=== PATIENT | male | born 1995 | race Caucasian/White ===

== ENCOUNTER 2017-06-29 12:01 | Emergency (ER) | payer SELFPAY ==
[~2017-06-29] VITALS: Ht 188 cm; Wt 79.0 kg
[~2017-06-29 12:01] MED LIST: BACTRIM DS1 TAB PO; CEPHALEXIN500 MG PO; CLARITIN-D1 TA1 OR; DOXYCYCL HYC100 MG PO; LAMICTAL25 M1 PO; LITHIUM CARB300 MG PO; LORTAB 10 PO; NAPROSYN500 MG PO; SEROQUEL100 MG PO; VYVANCE; VYVANSE40 MG PO
[2017-06-29 12:41] LABS: HEMATOCRIT 44.6 % (39.0-50.0); HEMOGLOBIN 15.1 g/dl (14.0-18.0); IMMATURE GRANULOCYTES 0.9 % (0.0-1.0); MEAN CELL VOLUME 83.4 fL CALC (80.0-100.0); MEAN CORPUSCULAR HGB 28.2 pG CALC (26.0-32.0); MEAN CORPUSCULAR HGB CONC 33.9 g/L CALC (32.0-36.0); NEUT# 4.27 thou/uL (1.82-7.42); RED BLOOD COUNT 5.35 mill/uL (4.70-6.10); RED CELL DISTRI WIDTH 12.8 % (11.5-15.5)
[2017-06-29 12:58] LABS: ALBUMIN 4.3 g/dL (3.2-5.0); ALKALINE PHOSPHATASE 64 u/l (38-126); ANION GAP 20 (6-22 (CALC)); BILIRUBIN, TOTAL 0.6 mg/dL (0.0-1.4); BUN 9 mg/dL (9-20); BUN/CREATININE RATIO 10 (12-20 (CALC)); CALCIUM 9.6 mg/dL (8.4-10.2); CARBON DIOXIDE 25 mmol/l (22-30); CHLORIDE 106 mmol/l (95-108); CREATININE 0.9 mg/dL (0.7-1.3); GFR > 60 ML/MIN (>=60 (CALC)); GFR FOR AFR.AMER. > 60 ML/MIN (>=60 (CALC)); GLUCOSE 96 mg/dL (75-110); LIPASE 81 u/l (23-300); POTASSIUM 4.3 mmol/l (3.5-5.1); SGOT/AST 22 u/l (17-59); SGPT/ALT 28 u/l (21-72); SODIUM 146 mmol/l (137-146); TOTAL PROTEIN 7.4 g/dL (6.3-8.2)
[2017-06-29 13:24] LABS: URINE BILIRUBIN - DIPSTICK NEGATIVE (NEGATIVE); URINE BLOOD DIPSTICK TRACE-LYSED (NEGATIVE); URINE CLARITY CLEAR; URINE COLOR YELLOW; URINE GLUCOSE - DIPSTICK NEGATIVE (NEGATIVE); URINE KETONE NEGATIVE (NEGATIVE); URINE LEUK ESTERASE NEGATIVE (NEGATIVE); URINE NITRITE - DIPSTICK NEGATIVE (Negative); URINE PROTEIN - DIPSTICK NEGATIVE (NEG-TRACE); URINE SPECIFIC GRAVITY >=1.030; URINE UROBILINOGEN - DIPSTICK 0.2 E.U./dL (0.2)
[2017-06-29] MEDS ORDERED: ONDANSETRON4 MG PO (14:33)
[2017-06-29 14:45] VITALS: BP 134/86
== END 2017-06-29 14:53 | disposition home or self-care (01) | DRG 392 ==
LOC: ED 12:01
PROVIDERS: Family Medicine
DX: K52.9 Noninfective gastroenteritis and colitis, unspecified (principal); R11.2 Nausea with vomiting, unspecified; R10.33 Periumbilical pain; R30.0 Dysuria
CPT/HCPCS: Q9967

== ENCOUNTER 2018-08-27 20:15 | Emergency (ER) | payer OTHER ==
[~2018-08-27] VITALS: Ht 188 cm; Wt 81.8 kg
[~2018-08-27 20:15] MED LIST changes: +ONDANSETRON4 MG PO
[2018-08-27 23:00] VITALS: BP 124/77
== END 2018-08-27 23:00 | disposition home or self-care (01) | DRG 605 ==
LOC: ED 20:15
DX: S00.33XA Contusion of nose, initial encounter (principal); S00.31XA Abrasion of nose, initial encounter; W22.8XXA Striking against or struck by other objects, initial encounter; Y93.K9 Activity, other involving animal care; Y92.71 Barn as the place of occurrence of the external cause; Y99.0 Civilian activity done for income or pay

== ENCOUNTER 2020-07-17 22:13 | Emergency (ER) | payer OTHER ==
[~2020-07-17] VITALS: Ht 188 cm; Wt 81.8 kg
[2020-07-17 22:15] VITALS: BP 138/62
[2020-07-17 22:50] LABS: IMMATURE GRANULOCYTES 0.8 % (0.0-5.0); MEAN CELL VOLUME 84.6 fL CALC (80.0-100.0); MEAN CORPUSCULAR HGB 27.6 pG CALC (26.0-32.0); MEAN CORPUSCULAR HGB CONC 32.6 g/dL CAL (32.0-36.0); NEUT# 7.88 thou/uL (1.82-7.42); RED BLOOD COUNT 5.08 mill/uL (4.70-6.10); RED CELL DISTRI WIDTH 12.5 % (11.5-15.5)
[2020-07-17 23:04] LABS: ALBUMIN 4.3 g/dL (3.2-5.0); ALKALINE PHOSPHATASE 61 u/l (38-126); AMYLASE 56 u/l (30-110); ANION GAP 10 (6-22 (CALC)); BILIRUBIN, TOTAL 0.8 mg/dL (0.0-1.4); BUN 18 mg/dL (9-20); BUN/CREATININE RATIO 15 (12-20 (CALC)); CARBON DIOXIDE 27 mmol/l (22-30); CHLORIDE 107 mmol/l (95-108); CREATININE 1.2 mg/dL (0.7-1.3); GFR > 60 ML/MIN (>=60 (CALC)); GFR FOR AFR.AMER. > 60 ML/MIN (>=60 (CALC)); LIPASE 71 u/l (23-300); POTASSIUM 3.8 mmol/l (3.5-5.1); SGOT/AST 36 u/l (17-59); SODIUM 141 mmol/l (137-146); TOTAL PROTEIN 6.9 g/dL (6.3-8.2)
[2020-07-18 00:29] LABS: URINE BILIRUBIN - DIPSTICK NEGATIVE (NEGATIVE); URINE BLOOD DIPSTICK NEGATIVE (NEGATIVE); URINE COLOR YELLOW; URINE GLUCOSE - DIPSTICK NEGATIVE (NEGATIVE); URINE KETONE TRACE mg/dL (NEGATIVE); URINE LEUK ESTERASE NEGATIVE (NEGATIVE); URINE NITRITE - DIPSTICK NEGATIVE (Negative); URINE PROTEIN - DIPSTICK NEGATIVE (NEG-TRACE); URINE SPECIFIC GRAVITY 1.025; URINE UROBILINOGEN - DIPSTICK 0.2 E.U./dL (0.2)
[2020-07-18] MEDS ORDERED: VOLTAREN75 MG PO (00:29)
[2020-07-18] MEDS ORDERED: TRAMADOL HYDROC50 MG PO (00:29)
== END 2020-07-18 01:04 | disposition home or self-care (01) | DRG 552 ==
LOC: ED 22:13
PROVIDERS: Family Medicine
DX: S32.039A Unspecified fracture of third lumbar vertebra, initial encounter for closed fracture (principal); S30.811A Abrasion of abdominal wall, initial encounter; J45.909 Unspecified asthma, uncomplicated; F31.9 Bipolar disorder, unspecified; V43.52XA Car driver injured in collision with other type car in traffic accident, initial encounter
CPT/HCPCS: Q9967

== ENCOUNTER 2023-03-15 23:40 | Emergency (ER) | payer SELFPAY ==
[~2023-03-15] VITALS: Ht 188 cm; Wt 86.0 kg
[~2023-03-15 23:40] MED LIST changes: +TRAMADOL HYDROC50 MG PO; +VOLTAREN75 MG PO
[2023-03-16] MEDS ORDERED: CYCLOBENZAPRINE10 MG PO (02:24)
[2023-03-16] MEDS ORDERED: ULTRAM50 MG PO (02:24)
[2023-03-16 02:37] VITALS: BP 120/74
== END 2023-03-16 02:59 | disposition home or self-care (01) | DRG 538 ==
LOC: ED 23:40
DX: S73.101A Unspecified sprain of right hip, initial encounter (principal); J45.909 Unspecified asthma, uncomplicated; F31.9 Bipolar disorder, unspecified; F17.200 Nicotine dependence, unspecified, uncomplicated; X58.XXXA Exposure to other specified factors, initial encounter

== ENCOUNTER 2023-11-01 17:37 | Emergency (ER) | payer SELFPAY ==
[~2023-11-01] VITALS: Ht 188 cm; Wt 77.0 kg
[~2023-11-01 17:37] MED LIST changes: +CYCLOBENZAPRINE10 MG PO; +LORTAB 5/3255 MG PO; +ULTRAM50 MG PO
[2023-11-01 18:57] LABS: URINE BILIRUBIN - DIPSTICK Negative (NEGATIVE); URINE BLOOD DIPSTICK Trace-lysed (NEGATIVE); URINE GLUCOSE - DIPSTICK Negative (NEGATIVE); URINE KETONE >=160 mg/dL (NEGATIVE); URINE LEUK ESTERASE Trace (NEGATIVE); URINE NITRITE - DIPSTICK Negative (Negative); URINE PH 5.5 (4.5-8.0); URINE PROTEIN - DIPSTICK Negative (NEG-TRACE); URINE SPECIFIC GRAVITY 1.025; URINE UROBILINOGEN - DIPSTICK 0.2 E.U./dL (0.2)
[2023-11-01 18:59] LABS: URINE COLOR Yellow
[2023-11-01] MEDS ORDERED: LIDOcaine HCl 1% (Local Anesth.) 20 ML VIAL IM STA (21:53)
[2023-11-01] MEDS ORDERED: cefTRIAXone SODIUM 1 GM/VIAL SDV IM ONE (21:55)
[2023-11-01] MEDS ORDERED: AZITHROMYCIN 250 MG/TAB PO ONE (21:55)
[2023-11-01] MEDS ORDERED: BACTRIM DS1 TAB PO (23:26)
[2023-11-01 23:38] VITALS: BP 122/88
== END 2023-11-01 23:47 | disposition home or self-care (01) | DRG 690 ==
LOC: ED 17:37
PROVIDERS: Emergency Medicine
DX: N39.0 Urinary tract infection, site not specified (principal); J45.909 Unspecified asthma, uncomplicated; F31.9 Bipolar disorder, unspecified; F17.200 Nicotine dependence, unspecified, uncomplicated

== ENCOUNTER 2024-03-12 17:48 | Emergency (ER) | payer SELFPAY ==
[~2024-03-12] VITALS: Ht 188 cm; Wt 78.0 kg
[2024-03-12] MEDS ORDERED: CEPHALEXIN500 M1 PO (18:16)
[2024-03-12] MEDS ORDERED: BACTRIM DS1 TAB PO (18:16)
[2024-03-12 18:28] VITALS: BP 111/74
== END 2024-03-12 18:33 | disposition home or self-care (01) | DRG 728 ==
LOC: ED 17:48
DX: N48.22 Cellulitis of corpus cavernosum and penis (principal); Z72.0 Tobacco use

== ENCOUNTER 2024-12-01 20:38 | Emergency (ER) | payer OTHER ==
[2024-12-01] VITALS (7 sets, daily range): BP systolic 111–127; BP diastolic 62–76
[~2024-12-01] VITALS: Ht 188 cm; Wt 90.0 kg
[~2024-12-01 20:38] MED LIST changes: +CEPHALEXIN500 M1 PO
[2024-12-01] MEDS ORDERED: oxyCODONE 5MG/ ACETAMINOPHEN 325MG TAB PO ONE (21:10)
[2024-12-01] MEDS ORDERED: PERCOCET 5/325M1 TAB PO (21:52)
== END 2024-12-01 22:16 | disposition home or self-care (01) | DRG 563 ==
LOC: ED 20:38
DX: S93.402A Sprain of unspecified ligament of left ankle, initial encounter (principal); J45.909 Unspecified asthma, uncomplicated; F31.9 Bipolar disorder, unspecified; F20.9 Schizophrenia, unspecified; V58.4XXA Person boarding or alighting a pick-up truck or van injured in noncollision transport accident, initial encounter; Z72.0 Tobacco use